=== PATIENT | male | born 1960 ===

== ENCOUNTER 2023-01-19 21:02 | Inpatient (IN) ==
[2023-01-19 21:45] LABS: ABS Eosinophils 0.2 10^3/uL (0.0-0.5); ABS Monocytes 0.4 10^3/uL (0.0-1.1); ABS Neutrophils 1.4 10^3/uL (1.5-7.6); ABS Nucleated RBC 0.01 10^3/ul; Eosinophil % 5.9 %; Hematocrit 31.3 % (38-53); Lymphocyte % 48.9 %; Mean Corpuscular Hemoglobin 35.3 pg (27-33); Mean Corpuscular Hgb Conc 35.3 g/dL (31-36); Mean Corpuscular Volume 100.1 fL (80-97); Mean Platelet Volume 7.4 fL (7.5-11.2); Nucleated Red Blood Cells % 0.2 /100 WBC (0.0-0.4); Platelet Count 264 10^3/uL (150-450); Red Blood Count 3.13 10^6/uL (4.06-5.63); Red Cell Distribution Width 13.3 % (12-17)
[2023-01-19 22:22] LABS: Albumin 3.9 g/dL (3.2-5.2); Albumin/Globulin Ratio 1.3 (1-3); Calcium 9.1 mg/dL (8.6-10.3); Creatinine, Serum 1.05 mg/dL (0.67-1.17); Globulin 2.9 g/dL (2-4); Potassium 4.2 mmol/L (3.5-5.0); Total Bilirubin 0.3 mg/dL (0.2-1.0); Total Protein 6.8 g/dL (6.4-8.9); eGFR CKD-EPI 79.8 (>60)
[2023-01-19] MEDS ORDERED: Iohexol 350 (CONTRAST) 500 ML MDV IV ONE (22:29)
[2023-01-19 23:08] LABS: High Sensitivity Troponin 1 Hr 536 pg/mL (<20)
[2023-01-19] MEDS ORDERED: Heparin DRIP 25,000 UNITS BAG 25,000 UNITS/500 ML BAG IV SCH (23:45)
[2023-01-20] MEDS: Heparin 5000 UNITS/ML 1 mL VIAL IV SCH ×2 (00:53→13:59)
[2023-01-20] MEDS ORDERED: Emtricitabine/Rilpivirine/Teno (Odefsey) 200/25/25 TABLET PO SCH (03:00)
[2023-01-20] MEDS ORDERED: Dextrose 50% Syringe 50 ml 25 GM/50 ML SYRINGE IV PUSH PRN (04:19)
[2023-01-20 04:53] LABS: HDL Cholesterol 39.8 mg/dL
[2023-01-20 06:55] LABS: ABS Eosinophils 0.3 10^3/uL (0.0-0.5); ABS Monocytes 0.5 10^3/uL (0.0-1.1); ABS Neutrophils 1.4 10^3/uL (1.5-7.6); ABS Nucleated RBC 0.01 10^3/ul; Eosinophil % 6.2 %; Hematocrit 30.4 % (38-53); Hemoglobin 10.8 g/dL (13.2-16.3); Lymphocyte % 48.8 %; Mean Corpuscular Hgb Conc 35.4 g/dL (31-36); Mean Corpuscular Volume 98.8 fL (80-97); Mean Platelet Volume 7.4 fL (7.5-11.2); Nucleated Red Blood Cells % 0.3 /100 WBC (0.0-0.4); Platelet Count 237 10^3/uL (150-450); Red Blood Count 3.08 10^6/uL (4.06-5.63); Red Cell Distribution Width 13.6 % (12-17); White Blood Count 4.2 10^3/uL (3.6-10.2)
[2023-01-20 07:11] LABS: Creatinine, Serum 1.02 mg/dL (0.67-1.17); Potassium 4.1 mmol/L (3.5-5.0); eGFR CKD-EPI 82.6 (>60)
[2023-01-20] MEDS: Aspirin EC 81 mg TAB.EC (enteric coated) PO SCH (07:53)
[2023-01-20 13:19] LABS: Urine Benzodiazepine Screen None Detected (None Detect); Urine Buprenorphine Screen None Detected (None Detect); Urine Cannabinoids Screen None Detected (None Detect); Urine Fentanyl Screen None Detected (None Detect); Urine Hydrocodone Screen None Detected (None Detect); Urine Opiates Screen None Detected (None Detect)
[2023-01-20 15:00] LABS: High Sensitivity Troponin 3 Hr 532 pg/mL (<20)
[2023-01-20] MEDS: PTO:Emtricitabine/Rilpivirine/Teno (Odefsey) 200/25/25 TABLET PO SCH (20:04)
[2023-01-21 06:13] LABS: ABS Eosinophils 0.2 10^3/uL (0.0-0.5); ABS Lymphocytes 1.9 10^3/uL (1.0-4.8); ABS Monocytes 0.4 10^3/uL (0.0-1.1); ABS Neutrophils 1.2 10^3/uL (1.5-7.6); Eosinophil % 5.4 %; Hemoglobin 11.6 g/dL (13.2-16.3); Lymphocyte % 49.3 %; Mean Corpuscular Hemoglobin 35.2 pg (27-33); Mean Corpuscular Hgb Conc 35.1 g/dL (31-36); Mean Corpuscular Volume 100.3 fL (80-97); Mean Platelet Volume 7.2 fL (7.5-11.2); Nucleated Red Blood Cells % 0.1 /100 WBC (0.0-0.4); Platelet Count 249 10^3/uL (150-450); Red Blood Count 3.29 10^6/uL (4.06-5.63); Red Cell Distribution Width 13.5 % (12-17); White Blood Count 3.8 10^3/uL (3.6-10.2)
[2023-01-21 06:37] LABS: Potassium 4.2 mmol/L (3.5-5.0)
[2023-01-21 06:43] LABS: Creatinine, Serum 1.02 mg/dL (0.67-1.17); eGFR CKD-EPI 82.6 (>60)
[2023-01-21] MEDS: Aspirin EC 81 mg TAB.EC (enteric coated) PO SCH (08:17)
[2023-01-21] MEDS: PTO:Emtricitabine/Rilpivirine/Teno (Odefsey) 200/25/25 TABLET PO SCH (20:39)
[2023-01-21] MEDS ORDERED: Enoxaparin 40 MG/0.4 ML SYR SUBCUT SCH (21:00)
[2023-01-22 06:01] LABS: ABS Eosinophils 0.3 10^3/uL (0.0-0.5); ABS Lymphocytes 2.2 10^3/uL (1.0-4.8); ABS Monocytes 0.5 10^3/uL (0.0-1.1); ABS Neutrophils 1.5 10^3/uL (1.5-7.6); ABS Nucleated RBC 0.01 10^3/ul; Eosinophil % 6.6 %; Hematocrit 34.5 % (38-53); Lymphocyte % 48.8 %; Mean Corpuscular Hemoglobin 34.9 pg (27-33); Mean Corpuscular Hgb Conc 34.9 g/dL (31-36); Mean Corpuscular Volume 100.2 fL (80-97); Mean Platelet Volume 7.5 fL (7.5-11.2); Nucleated Red Blood Cells % 0.1 /100 WBC (0.0-0.4); Platelet Count 253 10^3/uL (150-450); Red Blood Count 3.44 10^6/uL (4.06-5.63); Red Cell Distribution Width 13.5 % (12-17); White Blood Count 4.6 10^3/uL (3.6-10.2)
[2023-01-22 06:27] LABS: Calcium 9.2 mg/dL (8.6-10.3); Magnesium 1.9 mg/dL (1.9-2.7); Potassium 4.1 mmol/L (3.5-5.0); eGFR CKD-EPI 84.6 (>60)
[2023-01-22] MEDS: Aspirin EC 81 mg TAB.EC (enteric coated) PO SCH (09:56)
[2023-01-22 13:44] VITALS: BP 131/59
== END 2023-01-22 16:00 | DRG 190 ==
LOC: EDBD → ED 21:02 → EDHOLD 01-20 00:55 → SUATTDRO 01-20 00:55 → EDHOLD 01-20 04:25 → MEDTELE 01-20 05:57
PROVIDERS: ADMIT Hospitalist; ATTEND Internal Medicine